=== PATIENT | male | born 1975 | race Caucasian/White ===

== ENCOUNTER 2018-12-04 20:10 | Emergency (ER) | payer OTHER ==
[2018-12-04 20:14] VITALS: BMI 30.7
[2018-12-04 20:42] LABS: BASOPHILS 0.1 % (0-2); EOSINOPHILS 3.1 % (0-7); HEMOGLOBIN 16.2 g/dL (13.5-17.5); IMMATURE GRANULOCYTES 0.1 % (0-5); LYMPHOCYTES 34.9 % (15-50); MCH 30.2 pg (26.0-34.0); MCV 83.8 fL (80.0-100.0); MEAN PLATELET VOLUME 9.7 fL (7.4-10.4); MONOCYTES 5.5 % (2-11); NEUTROPHILS 56.3 % (40-80); PLATELET COUNT 195 10x3/uL (130-400); RBC 5.37 10x6/uL (4.20-6.10); RDW 12.4 % (11.5-14.5); WBC 9.6 10x3/uL (4.8-10.8)
[2018-12-04 20:57] LABS: ALBUMIN 3.7 g/dL (3.4-5.0); ALKALINE PHOSPHATASE 71 U/L (46-116); ALT (SGPT) 29 U/L (10-68); BILIRUBIN - TOTAL 0.35 mg/dL (0.2-1.3); CALC OSMOLALITY 283 mosm/kg (275-300); CALCIUM 8.9 mg/dL (8.5-10.1); CHLORIDE - SERUM 103 mmol/L (98-107); CREATININE - SERUM 1.4 mg/dL (0.6-1.3); GLUCOSE 161 mg/dL (74-106); POTASSIUM - SERUM 3.5 mmol/L (3.5-5.1); SODIUM 140 mmol/L (136-145); UREA NITROGEN 19 mg/dL (7-18); eGFR NON AFRICAN AMERICAN 58 mL/min (90-120)
[2018-12-04 21:09] LABS: CKMB 1.3 U/L (0.0-3.6); CREATINE KINASE 131 UL (21-232); MAGNESIUM - SERUM 1.9 mg/dL (1.8-2.4)
[2018-12-04 21:19] LABS: APTT 27.4 SECONDS (22.8-39.4); INR 1.08 (0.85-1.17); PROTIME 13.5 SECONDS (11.6-15.0)
[2018-12-04 21:25] LABS: PRO BNP 8 pg/mL (0-125); TROPONIN-I < 0.017 ng/mL (0.000-0.060)
[2018-12-04] MEDS ORDERED: ATIVAN0.5 MG PO (21:37)
[2018-12-04 22:15] VITALS: BP 125/84
[2019-03-04 09:45] VITALS: BMI 30.6
== END 2018-12-04 22:15 | disposition home or self-care (01) ==
LOC: EDBD 20:10 → D.ER 20:10
PROVIDERS: Family Medicine
DX: R05 Cough (principal); R07.9 Chest pain, unspecified

== ENCOUNTER 2019-03-03 21:13 | Inpatient (IN) | payer OTHER ==
[~2019-03-03] VITALS: Ht 180.3 cm; Wt 99.7 kg
[~2019-03-03 21:13] MED LIST: ATIVAN0.5 MG PO
--- NOTE | 2019-03-03 21:27 | NUR ---
AR TRAUMA [id number]
[2019-03-03 21:30] VITALS: BP 125/71
[2019-03-03 22:00] VITALS: BP 128/68
[2019-03-03 23:00] VITALS: BP 123/62
[2019-03-03 23:18] VITALS: BP 156/97
--- NOTE | 2019-03-03 23:49 | NUR ---
KNEE IMMOBILIZER APPLIED TO LLE. CIRCULATION INTACT TO LEFT FOOT.
[2019-03-04] VITALS (11 sets, daily range): BP systolic 96–134; BP diastolic 50–82; Ht 180.3 cm; Wt 99.7 kg
--- NOTE | 2019-03-04 00:07 | NUR ---
PT TO FLOOR WITH SIGNIFICANT OTHER AT BEDSIDE. KNEE IMMOBILIZER ON. LEFT FOREARM IV THAT IS INFUSING 125 NS ON TRANSFER. PAIN WELL CONTROLLED AT THIS TIME. EDUCATED ANIMAL CYTOLOGIST LIGHT USE AND NPO STATUS. PATIENT STATES UNDERSTANDING. CPOC.
--- NOTE | 2019-03-04 10:37 | NUR ---
NOTIFIED PANKAJ HEMPHILL APN THAT PATIENT HAS NOT URINATED ALL NIGHT. BLADDER SCAN SHOWED 843 ML. SHE WANTS A LUTZ CATH IN FOR SURGERY.
--- NOTE | 2019-03-04 10:57 | NUR ---
PLEXI PULSE ON LEFT FOOT. SCD ON RLE. LUTZ PLACED. 10 ML OF FLUID PUT IN BALLOON. 750 ML OUT. PATIENT TOLERATED WELL. NO NEEDS AT THIS TIME. CL IN REACH. WCTM
--- NOTE | 2019-03-04 13:36 | NUR ---
PLASMA BLADE SET TO 6/8 BOVIE PAD RIGHT THIGH [id number] EXP 09/10/20
[2019-03-04 17:39] LABS: BASOPHILS 0 % (0-2); EOSINOPHILS 0 % (0-7); HEMATOCRIT 36.7 % (42.0-54.0); HEMOGLOBIN 12.8 g/dL (13.5-17.5); IMMATURE GRANULOCYTES 0.5 % (0-5); LYMPHOCYTES 4.7 % (15-50); MCH 29.4 pg (26.0-34.0); MCHC 34.9 g/dL (31.0-37.0); MCV 84.4 fL (80.0-100.0); MEAN PLATELET VOLUME 9.8 fL (7.4-10.4); MONOCYTES 6.1 % (2-11); NEUTROPHILS 88.7 % (40-80); PLATELET COUNT 150 10x3/uL (130-400); RBC 4.35 10x6/uL (4.20-6.10); RDW 12.8 % (11.5-14.5); WBC 10.2 10x3/uL (4.8-10.8)
[2019-03-04 17:58] LABS: ALBUMIN 3.2 g/dL (3.4-5.0); ANION GAP 11.7 mmol/L (8-16); BILIRUBIN - TOTAL 0.56 mg/dL (0.2-1.3); CARBON DIOXIDE 27.5 mmol/L (21.0-32.0); CREATININE - SERUM 1.5 mg/dL (0.6-1.3); POTASSIUM - SERUM 4.2 mmol/L (3.5-5.1); PROTEIN - SERUM 6.6 g/dL (6.4-8.2)
--- NOTE | 2019-03-04 23:18 | NUR ---
PT RESTING IN BED. EYES CLOSED. NO SIGNS OF DISTRESS. BREATHING EVEN AND UNLABORED. IV SITE LT FA DRESSING CLEAN DRY AND INTACT. NO SIGNS OF INFECTION. LT AND RT ARM ABRASIONS REDDNESS. BOWEL SOUNDS ACTIVE. ABD ABRASIONS AND REDDNESS. LUTZ IN PLACE NO SIGNS OF INFECTION AT SITE. LT LEG CAST INTACT. WILL CONTINUE PLAN OF CARE. CALL LIGHT IN REACH. BED LOWERED AND LOCKED. BED RAILS UP X2.
[2019-03-05 01:17] VITALS: BP 124/50
--- NOTE | 2019-03-05 02:53 | NUR ---
I have reviewed this patient and I concur with the Shift Assessment completed by the Licensed Practical Nurse today this shift.
[2019-03-05 03:38] LABS: UDS - AMPHET NEGATIVE QUAL (NEGATIVE); UDS - BARB NEGATIVE QUAL (NEGATIVE); UDS - BENZO NEGATIVE QUAL (NEGATIVE); UDS - COCAINE NEGATIVE QUAL (NEGATIVE); UDS - OPIATE POSITIVE QUAL (NEGATIVE); UDS - PCP NEGATIVE QUAL (NEGATIVE); UDS - THC NEGATIVE QUAL (NEGATIVE)
[2019-03-05 03:41] LABS: APPEARANCE CLEAR (CLEAR); BILIRUBIN NEGATIVE (NEGATIVE); COLOR YELLOW (YELLOW); GLUCOSE 100 mg/dL (NEGATIVE); KETONE NEGATIVE (NEGATIVE); NITRITE NEGATIVE (NEGATIVE); PROTEIN NEGATIVE (NEGATIVE); UROBILINOGEN NORMAL (NORMAL)
[2019-03-05 03:47] LABS: BACTERIA FEW /hpf (NONE SEEN); EPITHELIAL CELLS 0-5 /hpf (0-5); WHITE CELLS - URINE 0-5 /hpf (0-5)
--- NOTE | 2019-03-05 04:30 | NUR ---
PT IV INFULTRATED. NEW IV SITED RT FA 20G. ATTEMPTS X1. PT TOLERATED WELL. RESTARTED IV FLUIDS.
[2019-03-05 04:59] VITALS: BP 124/62
--- NOTE | 2019-03-05 05:11 | NUR ---
PT ALERT AND ORIENTED.PT STATES STILL NO FEELING IN HIS LT LEG. CHECKED PULSE STONG PULSE. FOOT WARM TO TOUCH. SWELLING HAS GONE DOWN SOME. BLEEDING THROUGH DRESSING ON THE BACK SIDE SMALL AMOUNT BRIGHT RED BLOOD. CHANGED PAD UNDER LEG. WILL CONTINUE TO MONITOR.
[2019-03-05 06:34] LABS: BASOPHILS 0 % (0-2); EOSINOPHILS 0.1 % (0-7); HEMATOCRIT 32.7 % (42.0-54.0); HEMOGLOBIN 11.4 g/dL (13.5-17.5); IMMATURE GRANULOCYTES 0.3 % (0-5); LYMPHOCYTES 16.5 % (15-50); MCH 29.5 pg (26.0-34.0); MCHC 34.9 g/dL (31.0-37.0); MCV 84.5 fL (80.0-100.0); MEAN PLATELET VOLUME 9.9 fL (7.4-10.4); NEUTROPHILS 74.1 % (40-80); PLATELET COUNT 160 10x3/uL (130-400); RBC 3.87 10x6/uL (4.20-6.10); RDW 12.6 % (11.5-14.5); WBC 9.8 10x3/uL (4.8-10.8)
[2019-03-05 07:04] LABS: ALBUMIN 2.9 g/dL (3.4-5.0); ALKALINE PHOSPHATASE 58 U/L (46-116); ALT (SGPT) 21 U/L (10-68); BILIRUBIN - TOTAL 0.44 mg/dL (0.2-1.3); CALC OSMOLALITY 273 mosm/kg (275-300); CALCIUM 7.8 mg/dL (8.5-10.1); CARBON DIOXIDE 28.1 mmol/L (21.0-32.0); CHLORIDE - SERUM 103 mmol/L (98-107); CREATINE KINASE 560 UL (21-232); CREATININE - SERUM 1.3 mg/dL (0.6-1.3); GLUCOSE 125 mg/dL (74-106); POTASSIUM - SERUM 3.8 mmol/L (3.5-5.1); PROTEIN - SERUM 6.4 g/dL (6.4-8.2); SODIUM 136 mmol/L (136-145); UREA NITROGEN 15 mg/dL (7-18); eGFR NON AFRICAN AMERICAN 64 mL/min (90-120)
[2019-03-05 07:06] LABS: CKMB 1.5 U/L (0.0-3.6)
--- NOTE | 2019-03-05 07:33 | NUR ---
PT IS RESTING IN BED WITH EYES CLOSED. RESPIRATIONS ARE EVEN AND UNLABORED. PT IS EASILY AROUSED WITH VERBAL STIMULATION. PT IS AAO X 4 UPON AROUSAL. DRESSING TO LLE NOTED WITH MODERATE AMOUNT OF RED DRAINAGE NOTED TO UNDERSIDE. PT REPORTS "A LITTLE" FEELING TO LEFT TOES BUT IS UNABLE TO WIGGLE LEFT TOES AT THIS TIME. PT DENIES PRESENCE OF PAIN. MULTIPLE AREAS OF ROAD RASH NOTED TO PT BILATERAL UPPER EXTREMITIES AND ABDOMEN. PT DENIES PRESENCE OF N/V. BED IS IN THE LOWEST POSITION. CALL LIGHT AND BEDSIDE TABLE ARE WITHIN REACH. SIDE RAILS X 2. PT DENIES FURTHER NEEDS AT THIS TIME. WILL CONT TO MONITOR.
[2019-03-05 08:07] VITALS: BP 107/55
--- NOTE | 2019-03-05 10:07 | NUR ---
DRESSING TO LLE CHANGED PER VERBAL DIRECTION/ORDER FROM PANKAJ BURCH. POLLO WRAPS REMOVED, ABD PADS PLACED, NEW POLLO WRAPS APPLIED TO LLE. PT DENIES PRESENCE OF PAIN. PT REPORTS MINIMAL FEELING TO LLE. PT DENIES FURTHER NEEDS. BED IS IN THE LOWEST POSITION. CALL LIGHT AND BEDSIDE TABLE ARE WITHIN REACH. SIDE RAILS X 2. WILL CONT TO MONITOR.
[2019-03-05 13:27] VITALS: BP 128/57
--- NOTE | 2019-03-05 13:32 | NUR ---
PHARMACY NOTIFIED OF NEED FOR FLUIDS. SEE EMAR.
[2019-03-05 16:10] VITALS: BP 135/62
--- NOTE | 2019-03-05 17:10 | NUR ---
PT WITH EDEMA AND BLUE DISCOLORATION TO LEFT KNEE. /PANKAJ BURCH PAGED BY HEAVY DUTY TRUCK MECHANIC TO NOTIFY.
--- NOTE | 2019-03-05 17:12 | NUR ---
PANKAJ BURCH RETURNS PAGE. ORDERS RECD ARE TO OBTAIN NEW XRAY OF LEFT KNEE AND PLACE ICE TO AFFECTED AREA. WILL PLACE ORDERS.
--- NOTE | 2019-03-05 17:28 | NUR ---
XRAY TO LEFT KNEE COMPLETE. ICE APPLIED TO LEFT KNEE. WILL NOTIFY PANKAJ HEMPHILL APN WITH REPORT WHEN READY.
--- NOTE | 2019-03-05 19:02 | NUR ---
PANKAJ BURCH NOTIFIED OF KNEE EXRAY RESULTS. NO NEW ORDERS RECD.
[2019-03-05 21:44] VITALS: BP 114/58
--- NOTE | 2019-03-06 01:06 | NUR ---
PT RESTING IN BED. EYES CLOSED. NO SIGNS OF DISTRESS. BREATHING EVEN AND UNLABORED. IV SITE RT FA DRESSING CLEAN DRY AND INTACT. NO SIGNS OF INFECTION. BOWEL SOUNDS ACTIVE. LT AND ER ARMS SKIN TEARS AND REDDNESS. LUNG SOUNDS CLEAR. LT LOWER AND SKIN TEARS. LUTZ IN PLACE. CLEAN DRY AND INTACT AT SITE. LT LOWER LEG PINS AND DRESSING INTACT. WILL CONTINUE PLAN OF CARE. CALL LIGHT IN REACH. BED LOWERED AND LOCKED. BED RAILS UPX2.
[2019-03-06 01:11] VITALS: BP 124/60
--- NOTE | 2019-03-06 04:23 | NUR ---
I have reviewed this patient and I concur with the Shift Assessment completed by the Licensed Practical Nurse today this shift.
[2019-03-06 05:18] VITALS: BP 117/60
[2019-03-06 07:10] LABS: BASOPHILS 0.1 % (0-2); HEMATOCRIT 31.6 % (42.0-54.0); HEMOGLOBIN 10.9 g/dL (13.5-17.5); IMMATURE GRANULOCYTES 0.5 % (0-5); LYMPHOCYTES 29.2 % (15-50); MCH 29.2 pg (26.0-34.0); MCHC 34.5 g/dL (31.0-37.0); MCV 84.7 fL (80.0-100.0); MEAN PLATELET VOLUME 9.8 fL (7.4-10.4); MONOCYTES 9.4 % (2-11); NEUTROPHILS 59.8 % (40-80); PLATELET COUNT 145 10x3/uL (130-400); RBC 3.73 10x6/uL (4.20-6.10); RDW 12.4 % (11.5-14.5); WBC 8.2 10x3/uL (4.8-10.8)
--- NOTE | 2019-03-06 07:18 | NUR ---
PT IS RESTING IN BED WITH EYES CLOSED. RESPIRATIONS ARE EVEN AND UNLABORED. PT IS EASILY ARUSED WITH VERBAL STIMULATION. PT REPORTS PAIN 5/10. HOTEL MAINTENANCE WORKER DILAUDID IS AVAILABLE. LLE WITH DRESSING IN PLACE. MODERATE AMOUNT OF BLOOD NOTED TO DRESSING. PT REPORTS FEELING TO LLE. PT IS ABLE TO MOVE LLE. LUTZ CATHETER IN PLACE AND DRAINING WITHOUT DIFFICULTY. CLEAR YELLOW URINE NOTED TO COLLECTION BAG. PT DENIES PRESENCE OF N/V. BED IS IN THE LOWEST POSITION. CALL LIGHT AND BEDSIDE TABLE ARE WITHIN REACH. SIDE RAILS X 2. PT DENIES FURTHER NEEDS. WILL CONT TO MONITOR.
[2019-03-06 07:22] LABS: ANION GAP 8.5 mmol/L (8-16); CALCIUM 7.9 mg/dL (8.5-10.1); CARBON DIOXIDE 30.9 mmol/L (21.0-32.0); CREATININE - SERUM 1.2 mg/dL (0.6-1.3); POTASSIUM - SERUM 3.4 mmol/L (3.5-5.1)
[2019-03-06 09:03] VITALS: BP 130/73
--- NOTE | 2019-03-06 11:15 | NUR ---
DRESSING CHANGED TO LLE PER ORDER. PT TOLERATED WELL. LLE IS ELEVATED AT THIS TIME. CARBIDE POWDER PROCESSOR DILAUDID AVAILABLE FOR PAIN CONTROL. PT DENIES PRESENCE OG N/V. BED IS IN THE LOWEST POSITION. CALL LIGHT AND BEDSIDE TABLE ARE WITHIN REACH. SIDE RAILS X 2. WILL CONT TO MONITOR.
[2019-03-06 13:48] VITALS: BP 120/78
--- NOTE | 2019-03-06 14:49 | MORECARE ---
CASE MANAGEMENT DISCHARGE SUMMARY PATIENT: COLLEEN HAN UNIT: [id number] ADM DATE: 03/04/19 AGE: 43 : 73 SEX: M ROOM/BED: D.2212 AUTHOR: MARILEEDOC PHYSICIAN: REFERRING PHYSICIAN: YOVANI WILSON MD DATE OF SERVICE: 03/06/19 Discharge Plan Patient Name: COLLEEN HAN Facility: [facility]:[place] : 1975 Planned Disposition: Home or Self Care Anticipated Discharge Date: Discharge Date: Expected LOS: Initial Reviewer: [email or web address] Initial Review Date: 03/03/2019 Generated: 03/06/19 3:48 pm Comments DCP- Discharge Planning Updated by [email or web address]: Beverly Hui on 03/06/19 1:[address] Patient Name: COLLEEN HAN Admission Status: ER Accout number: [id number] Admission Date: 03-04-2019 : 1975 Admission Diagnosis:UNSP FRACTURE OF SHAFT OF LEFT TIBIA, INIT FOR CLOS FX Attending: YOVANI WILSON Current LOS: 2 Anticipated DC Date: Planned Disposition: Home or Self Care Primary Insurance: [employer] POS Discharge Planning Comments: CM met with patient to complete initial dc planning assessment. CM educated patient on the CM role and verbal consent given by patient to complete assessment. Patient lives at home with his adult children where he was independent with his care. At discharge patient plans to return home and feels this is a safe discharge. CM discussed availability of home health, rehab services, and medical equipment. At this point he stated that he will need crutches when discharged. Patient denied known discharge needs at this time. One of his daughters will be his cart driver home. CM will continue to follow and will assist as needed with dc plans/needs. Bell Person: Beverly Hui DCPIA - Discharge Planning Initial Assessment Updated by [email or web address]: Beverly Hui on 03/06/19 2:46 pm * Is the patient Alert and Oriented? Yes * How many steps to enter\exit or inside your home? * PCP HOLLINS * Pharmacy [facility] * Preadmission Environment Home with Family * ADLs Independent * Equipment None * List name and contact numbers for known caregivers / representatives who currently or will assist patient after discharge: COLLEEN HAN [phone] * Verbal permission to speak to the caregivers and representatives has been obtained from the patient. N/A * Community resources currently utilized None * Additional services required to return to the preadmission environment? Yes * Can the patient safely return to the preadmission environment? Yes * Has this patient been hospitalized within the prior 30 days at any hospital? No Patient Name: COLLEEN HAN Page [phone] at 1449 All edits/amendments must be made on the electronic document DICTATION DATE: 03/06/191447 MOLD DESIGNER: NOELLE 03/06/191447 RPT#: [id number] [place] DATE: STATUS: ADM IN [facility] [address] [place] [address] END OF REPORT
[2019-03-06 17:10] VITALS: BP 124/75
[2019-03-06 21:53] VITALS: BP 133/71
[2019-03-07 00:25] VITALS: BP 116/70
--- NOTE | 2019-03-07 03:00 | NUR ---
PT IV INFULTRATED. NEW IV SITED RT FA. ATTEMPTS X1. PT TOLERATED WELL. 20G. WILL CONTINUE FLUIDS.
--- NOTE | 2019-03-07 04:24 | NUR ---
PT RESTING IN BED. ALERT AND ORIENTED. NO SINGS OF DISTRESS. BREATHING EVEN AND UNLABORED. IV SITE RT FA DRESSING CLEAN DRY AND INTACT. NO SIGNS OF INFECTION. BOWEL SOUNDS ACTIVE. ROAD RASH LT AND RT ARM AND ABD. LUTZ IN PLACE CLEAN DRY AND INTACT. LT LEG DRESSING CLEAN DRY AND INTACT. LEG ELAVATED. WILL CONTINUE PLAN OF CARE. CALL LIGHT IN REACH. BED LOWERED AND LOCKED. BED RAILS UPX2.
[2019-03-07 05:16] VITALS: BP 110/65
[2019-03-07 06:05] LABS: BASOPHILS 0.2 % (0-2); HEMATOCRIT 33.3 % (42.0-54.0); HEMOGLOBIN 11.5 g/dL (13.5-17.5); IMMATURE GRANULOCYTES 0.7 % (0-5); LYMPHOCYTES 28.9 % (15-50); MCHC 34.5 g/dL (31.0-37.0); MCV 83.9 fL (80.0-100.0); MEAN PLATELET VOLUME 9.9 fL (7.4-10.4); MONOCYTES 9.8 % (2-11); NEUTROPHILS 58.4 % (40-80); PLATELET COUNT 157 10x3/uL (130-400); RBC 3.97 10x6/uL (4.20-6.10); RDW 12.4 % (11.5-14.5); WBC 8.4 10x3/uL (4.8-10.8)
[2019-03-07 06:29] LABS: ANION GAP 9.2 mmol/L (8-16); CALCIUM 8.1 mg/dL (8.5-10.1); CARBON DIOXIDE 29.6 mmol/L (21.0-32.0); CREATININE - SERUM 1.2 mg/dL (0.6-1.3); POTASSIUM - SERUM 3.8 mmol/L (3.5-5.1)
--- NOTE | 2019-03-07 07:00 | NUR ---
PT IS RESTING IN BED WITH EYES OPEN. RESPIRATIONS ARE EVEN AND UNLABORED. DRESSING TO LLE IS WITH MODERATE DRAINAGE NOTED TO THE UNDERSIDE. LLE IS ELEVATED. LUTZ CATHETER IS DRAINING WITHOUT DIFFICULTY. CLEAR YELLOW URINE NOTED TO COLLECTION BAG. PT IS AAO X 4. PT REPORTS PAIN 3/10. CUSTOMS INVESTIGATOR DILAUDID IS AVAILABLE. PT DENIES PRESENCE OF N/V. PT DENIES FURTHER NEEDS. BED IS IN THE LOWEST POSITION. CALL LIGHT AND BEDSIDE TABLE ARE WITHIN REACH. SIDE RAILS X 2. WILL CONT TO MONITOR.
--- NOTE | 2019-03-07 07:06 | NUR ---
PT TRANSPORTED FROM ROOM VIA BED BY HOSPITAL STAFF FOR PROCEDURE. PT DENIES FURTHER NEEDS. FAMILY IS IN ROOM.
--- NOTE | 2019-03-07 08:29 | NUR ---
PREPPED FROM UPPER THIGH TO TOES CIRCUMFERENTIALLY. EX FIX IN PLACE. PREPPED ALL HARDWARE ON EX FIX.
--- NOTE | 2019-03-07 10:00 | NUR ---
PT RETURNS TO ROOM VIA BED AND IS AAO X 4. FAMILY IS AT BEDSIDE. PT REPORTS FEELING TO LLE. DRESSING TO LLE IS CDI. PT REPORTS SLIGHT PAIN. DRAINAGE ENGINEER DILAUDID IS AVAILABLE. PT EDUCATED ON ALL TYPES OF ANALGESIA. LUTZ CATHETER IN PLACE AND DRAINING WITHOUT DIFFICULTY. PT DENIES PRESENCE OF N/V AT THIS TIME. BED IS IN THE LOWEST POSITION. CALL LIGHT AND BEDSIDE TABLE ARE WITHIN REACH. SIDE RAILS X 2. WILL CONT TO MONITOR.
[2019-03-07 10:03] VITALS: BP 135/79
--- NOTE | 2019-03-07 13:31 | NUR ---
Nutrition follow-up: Pt NPO for procedure today PO intake has been ~60% of meals Labs reviewed Wt: 219# RDN following.
[2019-03-07 17:49] VITALS: BP 122/51
--- NOTE | 2019-03-07 19:48 | NUR ---
22G PIV TO RIGHT FOREARM INSERTED FOR VOLUNTEER SERVICES MANAGER ADMINISTRATION. PT TOLERATED WELL.
[2019-03-07 21:26] VITALS: BP 116/62
[2019-03-08] VITALS (7 sets, daily range): BP systolic 113–137; BP diastolic 61–80
[2019-03-08 06:10] LABS: BASOPHILS 0.1 % (0-2); EOSINOPHILS 0.8 % (0-7); HEMATOCRIT 31.1 % (42.0-54.0); IMMATURE GRANULOCYTES 0.9 % (0-5); LYMPHOCYTES 26.7 % (15-50); MCH 29.3 pg (26.0-34.0); MCHC 35.4 g/dL (31.0-37.0); MCV 82.7 fL (80.0-100.0); MEAN PLATELET VOLUME 9.6 fL (7.4-10.4); MONOCYTES 8.1 % (2-11); NEUTROPHILS 63.4 % (40-80); RBC 3.76 10x6/uL (4.20-6.10); RDW 12.5 % (11.5-14.5)
[2019-03-08 06:31] LABS: CALC OSMOLALITY 276 mosm/kg (275-300); CALCIUM 8.3 mg/dL (8.5-10.1); CARBON DIOXIDE 28.2 mmol/L (21.0-32.0); CHLORIDE - SERUM 105 mmol/L (98-107); CREATININE - SERUM 1.1 mg/dL (0.6-1.3); GLUCOSE 106 mg/dL (74-106); POTASSIUM - SERUM 3.8 mmol/L (3.5-5.1); SODIUM 138 mmol/L (136-145); UREA NITROGEN 15 mg/dL (7-18); eGFR NON AFRICAN AMERICAN 77 mL/min (90-120)
[2019-03-08 06:32] LABS: PLATELET COUNT 191 10x3/uL (130-400); WBC 10.6 10x3/uL (4.8-10.8)
--- NOTE | 2019-03-08 08:45 | NUR ---
PATIENT IN BED WITH IV INTACT. NO COMPLAINTS OR SIGNS OF DISTRESS. FAMILY AT BEDSIDE. CALL LIGHT WITHIN REACH. DRESSING TO LLE CDI. FAMILY AT BEDSIDE.
[2019-03-08] MEDS ORDERED: HYDROCODON-ACE1 EA10 PO (08:54)
[2019-03-08] MEDS ORDERED: ELIQUIS2.5 MG PO (08:54)
--- NOTE | 2019-03-08 11:30 | NUR ---
LUTZ REMOVED PER ORDERS.
--- NOTE | 2019-03-08 12:47 | MORECARE ---
CASE MANAGEMENT DISCHARGE SUMMARY PATIENT: COLLEEN HAN UNIT: [id number] ADM DATE: 03/04/19 AGE: 43 : 73 SEX: M ROOM/BED: D.2212 AUTHOR: MARILEEDOC PHYSICIAN: REFERRING PHYSICIAN: YOVANI WILSON MD DATE OF SERVICE: 03/08/19 Discharge Plan Patient Name: COLLEEN HAN Facility: [facility]:[place] : 1975 Planned Disposition: Home or Self Care Anticipated Discharge Date: Discharge Date: Expected LOS: Initial Reviewer: [email or web address] Initial Review Date: 03/03/2019 Generated: 03/08/19 1:47 pm DCP- Discharge Planning Updated by [email or web address]: Beverly Hui on 03/06/19 1:[address] Patient Name: COLLEEN HAN Admission Status: ER Accout number: [id number] Admission Date: 03-04-2019 : 1975 Admission Diagnosis:UNSP FRACTURE OF SHAFT OF LEFT TIBIA, INIT FOR CLOS FX Attending: YOVANI WILSON Current LOS: 2 Anticipated DC Date: Planned Disposition: Home or Self Care Primary Insurance: [email or web address] POS Discharge Planning Comments: CM met with patient to complete initial dc planning assessment. CM educated patient on the CM role and verbal consent given by patient to complete assessment. Patient lives at home with his adult children where he was independent with his care. At discharge patient plans to return home and feels this is a safe discharge. CM discussed availability of home health, rehab services, and medical equipment. At this point he stated that he will need crutches when discharged. Patient denied known discharge needs at this time. One of his daughters will be his newspaper delivery driver home. CM will continue to follow and will assist as needed with dc plans/needs. Mixing Place Supervisor: Beverly Hui DCPIA - Discharge Planning Initial Assessment Updated by [email or web address]: Beverly Hui on 03/06/19 2:46 pm * Is the patient Alert and Oriented? Yes * How many steps to enter\exit or inside your home? * PCP HOLLINS * Pharmacy [facility] * Preadmission Environment Home with Family * ADLs Independent * Equipment None * List name and contact numbers for known caregivers / representatives who currently or will assist patient after discharge: COLLEEN HAN [phone] * Verbal permission to speak to the caregivers and representatives has been obtained from the patient. N/A * Community resources currently utilized None * Additional services required to return to the preadmission environment? Yes * Can the patient safely return to the preadmission environment? Yes * Has this patient been hospitalized within the prior 30 days at any hospital? No Last DP export: 03/06/19 1:49 p Patient Name: COLLENE HAN Page [phone] at 1247 All edits/amendments must be made on the electronic document DICTATION DATE: 03/08/19 1247 OPERATIONS WELDER: NOELLE 03/08/19 1247 RPT#: [id number] DC DATE: STATUS: ADM IN [facility] [address] [place] [address] END OF REPORT
--- NOTE | 2019-03-08 13:00 | MORECARE ---
CASE MANAGEMENT DISCHARGE SUMMARY PATIENT: COLLEEN HAN UNIT: [id number] ADM DATE: 03/04/19 AGE: 43 : 73 SEX: M ROOM/BED: D.2212 AUTHOR: MARILEEDOC PHYSICIAN: REFERRING PHYSICIAN: YOVANI WILSON MD DATE OF SERVICE: 03/08/19 Discharge Plan Patient Name: COLLEEN HAN Facility: [facility]:[place] : 1975 Planned Disposition: Home or Self Care Anticipated Discharge Date: Discharge Date: Expected LOS: Initial Reviewer: [email or web address] Initial Review Date: 03/03/2019 Generated: 03/08/19 2:00 pm DCP- Discharge Planning Updated by [email or web address]: Beverly Hui on 03/06/19 1:[address] Patient Name: COLLEEN HAN Admission Status: ER Accout number: [id number] Admission Date: 03-04-2019 : 1975 Admission Diagnosis:UNSP FRACTURE OF SHAFT OF LEFT TIBIA, INIT FOR CLOS FX Attending: YOVANI WILSON Current LOS: 2 Anticipated DC Date: Planned Disposition: Home or Self Care Primary Insurance: [employer] POS Discharge Planning Comments: CM met with patient to complete initial dc planning assessment. CM educated patient on the CM role and verbal consent given by patient to complete assessment. Patient lives at home with his adult children where he was independent with his care. At discharge patient plans to return home and feels this is a safe discharge. CM discussed availability of home health, rehab services, and medical equipment. At this point he stated that he will need crutches when discharged. Patient denied known discharge needs at this time. One of his daughters will be his power screwdriver operator home. CM will continue to follow and will assist as needed with dc plans/needs. Media Services Specialist: Beverly Hui DCPIA - Discharge Planning Initial Assessment Updated by [email or web address]: Beverly Hui on 03/06/19 2:46 pm * Is the patient Alert and Oriented? Yes * How many steps to enter\exit or inside your home? * PCP HOLLINS * Pharmacy [facility] * Preadmission Environment Home with Family * ADLs Independent * Equipment None * List name and contact numbers for known caregivers / representatives who currently or will assist patient after discharge: COLLEEN HAN [phone] * Verbal permission to speak to the caregivers and representatives has been obtained from the patient. N/A * Community resources currently utilized None * Additional services required to return to the preadmission environment? Yes * Can the patient safely return to the preadmission environment? Yes * Has this patient been hospitalized within the prior 30 days at any hospital? No External Providers External Provider: [facility] Next Contact Date: Service Request Date: Service Type: Resolution: Reviewer: Comments: External Provider: [facility] Next Contact Date: Service Request Date: Service Type: Resolution: Reviewer: Comments: Last DP export: 03/08/19 11:47 a Patient Name: COLLEEN HAN Page [phone] at 1300 All edits/amendments must be made on the electronic document DICTATION DATE: 03/08/19 1300 HOSPITAL CHIEF EXECUTIVE OFFICER: NOELLE 03/08/19 1300 RPT#: [id number] DC DATE: STATUS: ADM IN [facility] [address] [place] [address] END OF REPORT
--- NOTE | 2019-03-08 13:10 | MORECARE ---
CASE MANAGEMENT DISCHARGE SUMMARY PATIENT: COLLEEN HAN UNIT: [id number] ADM DATE: 03/04/19 AGE: 43 : 73 SEX: M ROOM/BED: D.2212 AUTHOR: STEPHEN HUNT PHYSICIAN: REFERRING PHYSICIAN: YOVANI WILSON MD DATE OF SERVICE: 03/08/19 Discharge Plan Patient Name: COLLEEN HAN Facility: [facility]:[place] : 1975 Planned Disposition: Home or Self Care Anticipated Discharge Date: Discharge Date: Expected LOS: Initial Reviewer: [email or web address] Initial Review Date: 03/03/2019 Generated: 03/08/19 2:10 pm Comments DCP- Discharge Planning Updated by [email or web address]: Beverly Hui on 03/08/19 12:[address] PATIENT WILL NEED HOME HEALTH AT [place], [facility] WITH [facility], THEY WILL ACCEPT PATIENT WHEN DISCHARGED. I HAVE SENT CLINICALS TO [facility] AND SPOKEN WITH LACEY. HE HAS FAMILY THAT CAN BE TAUGHT WOUND CARE, PATIENT DOES HAVE A 20% COPAY WITH HOME HEALTH ([facility] IS IN NETWORK ) HE WILL NEED A WALKER AT DISCHARGE I HAVE ORDERED THAT WITH [facility], I SPOKE WITH YASMINE AND THEY WILL DELIVER THE WALKER TO THE HOSPITAL TODAY. CM TO CONTINUE TO FOLLOW AND ASSIST WITH DC PLANNING NEEDED DCP- Discharge Planning Updated by [email or web address]: Beverly Hui on 03/06/19 1:[address] Patient Name: COLLEEN HAN Admission Status: ER Accout number: [id number] Admission Date: 03-04-2019 : 1975 Admission Diagnosis:UNSP FRACTURE OF SHAFT OF LEFT TIBIA, INIT FOR CLOS FX Attending: YOVANI WILSON Current LOS: 2 Anticipated DC Date: Planned Disposition: Home or Self Care Primary [facility] Discharge Planning Comments: CM met with patient to complete initial dc planning assessment. CM educated patient on the CM role and verbal consent given by patient to complete assessment. Patient lives at home with his adult children where he was independent with his care. At discharge patient plans to return home and feels this is a safe discharge. CM discussed availability of home health, rehab services, and medical equipment. At this point he stated that he will need crutches when discharged. Patient denied known discharge needs at this time. One of his daughters will be his utility worker driver home. CM will continue to follow and will assist as needed with dc plans/needs. Tumbler Machine Operator: Beverly Hui DCPIA - Discharge Planning Initial Assessment Updated by [email or web address]: Beverly Hui on 03/06/19 2:46 pm * Is the patient Alert and Oriented? Yes * How many steps to enter\exit or inside your home? * PCP HOLLINS * Pharmacy [facility] * Preadmission Environment Home with Family * ADLs Independent * Equipment None * List name and contact numbers for known caregivers / representatives who currently or will assist patient after discharge: COLLEEN HAN [phone] * Verbal permission to speak to the caregivers and representatives has been obtained from the patient. N/A * Community resources currently utilized None * Additional services required to return to the preadmission environment? Yes * Can the patient safely return to the preadmission environment? Yes * Has this patient been hospitalized within the prior 30 days at any hospital? No Coverage Notice Reviewer: [id number] - Beverly Hui Notice Issued Date-Time: 03/08/2019 8:30 Notice Type: Patient Choice Letter Notice Delivered To: Patient Relationship to Patient: [employer] Jointer Name: Delivery Method: HAND - Hand Delivered Elaine Days: Prior Verbal Notification: Recipient Understood Notice: Yes Recipient Signature: Yes Med Rec Note Co-signed by Attending: Coverage Notice Comment: [facility] Last DP export: 03/08/19 12:00 p Patient Name: COLLEEN HAN Page [phone] at 1310 All edits/amendments must be made on the electronic document DICTATION DATE: 03/08/19 1310 PAPER STRIPPER: NOELLE 03/08/19 1310 RPT#: [id number] DC DATE: STATUS: ADM IN [facility] [address] [place] [address] END OF REPORT
--- NOTE | 2019-03-08 19:15 | NUR ---
PT ALERT AND ORIENTED WITH SON IN ROOM. RATES PAIN 2 OUT OF 10 AT THIS TIME. AM NURSE COMING IN TO COMPLETE DRESSING CHANGE. CURRENTLY LLE HAS EXTERNAL FIXATION AND POLLO WRAP. DRAINAGE NOTED ON THE BOTTOM OF THE DRESSING. HAS RIGHT FOREARM IV X 2. BOTH CURRENTLY SALINE LOCKED. PATIENT HAS SCD TO THE RIGHT LOWER EXTREMETY. VERBALIZES UNDERSTANDING TO USE URINAL WHEN IN NEED OF BATHROOM DUTIES. PATIENT ALSO VERBALIZES NOT TO GET OUT OF BED WITH OUT ASSISTANCE. HAS CALL LIGHT IN REACH. DENIES FURTHER ISSUES AT THIS TIME. CPOC.
--- NOTE | 2019-03-08 20:04 | NUR ---
PATIENT IV INTACT. NO COMPLAINTS OR SIGNS OF DISTRESS. SALINE LOCKED. VOIDED 650 AFTER LUTZ REMOVED WITH NO PROBLEMS. DRESSING INTACT. CALL LIGHT WITHIN REACH.
--- NOTE | 2019-03-08 20:40 | NUR ---
PATIENT DRESSING TO LLE CHANGED. PIN SITES CLEANED WITH PEROXIDE AND WRAPPED WITH NEW XEROFORM. MID INCISION XEROFORM CHANGED, DID NOT TOUCH LATERAL INCISION. GAUZED AND ABD PADS PLACED OVER INCISION SITES AND WRAPPED WITH KERLIX PER ORDER. PATIENT TOLERATED WITH SMALL AMOUNT OF PAIN. CALL LIGHT WITHIN REACH. FAMILY AT BEDSIDE.
--- NOTE | 2019-03-08 20:50 | NUR ---
ADMINISTERED HYDROCODONE PRN FOR PAIN PER REQUEST. DENIES FURTHER NEEDS AT THIS TIME. CPOC.
[2019-03-09] VITALS: BP 132/69
--- NOTE | 2019-03-09 00:05 | NUR ---
PATIENT STATES HE HAS A HEADACHE AND REQUESTS TYLENOL. ADMINSTERED. PT TOLERATED WELL. CPOC.
[2019-03-09 04:00] VITALS: BP 113/74
[2019-03-09 05:19] LABS: BASOPHILS 0.4 % (0-2); EOSINOPHILS 3.4 % (0-7); HEMOGLOBIN 12.2 g/dL (13.5-17.5); IMMATURE GRANULOCYTES 1.4 % (0-5); LYMPHOCYTES 33.6 % (15-50); MCH 29.4 pg (26.0-34.0); MCHC 34.9 g/dL (31.0-37.0); MCV 84.3 fL (80.0-100.0); MEAN PLATELET VOLUME 9.4 fL (7.4-10.4); MONOCYTES 7.7 % (2-11); NEUTROPHILS 53.5 % (40-80); RBC 4.15 10x6/uL (4.20-6.10); RDW 12.7 % (11.5-14.5); WBC 10.4 10x3/uL (4.8-10.8)
[2019-03-09 05:25] LABS: CALC OSMOLALITY 276 mosm/kg (275-300); CALCIUM 8.7 mg/dL (8.5-10.1); CARBON DIOXIDE 27.2 mmol/L (21.0-32.0); CHLORIDE - SERUM 104 mmol/L (98-107); CREATININE - SERUM 1.1 mg/dL (0.6-1.3); GLUCOSE 103 mg/dL (74-106); PLATELET COUNT 239 10x3/uL (130-400); SODIUM 138 mmol/L (136-145); UREA NITROGEN 16 mg/dL (7-18); eGFR NON AFRICAN AMERICAN 77 mL/min (90-120)
--- NOTE | 2019-03-09 07:57 | NUR ---
AWAKE AND ALERT. ORIENTED X3. NO C/O AT THIS TIME. LUNGS ARE CLEAR BILATERALLY, NO COUGH NOTED. SKIN IS INTACT WITHOUT REDNESS EXCEPT ROAD RASH TO LEFT FOREARM AND INCISIONS TO LEFT LEG, WHICH HAS A DRY INTACT DRESSING IN PLACE AND EXTERNAL FIXATOR WELL. NEURO CHECKS WNL. DENIES NEEDS. SL TO RIGHT FOREARM/AC AREA PATENT WTIHOUT REDNESS AT INSERTION SITE.
[2019-03-09 08:47] VITALS: BP 122/78
--- NOTE | 2019-03-09 09:23 | MORECARE ---
CASE MANAGEMENT DISCHARGE SUMMARY PATIENT: COLLEEN HAN UNIT: [id number] ADM DATE: 03/04/19 AGE: 43 : 73 SEX: M ROOM/BED: D.2212 AUTHOR: MARILEE,DOC PHYSICIAN: REFERRING PHYSICIAN: YOVANI WILSON MD DATE OF SERVICE: 03/09/19 Discharge Plan Patient Name: COLLEEN HAN Facility: [facility]:[place] : 1975 Planned Disposition: Home or Self Care Anticipated Discharge Date: Discharge Date: Expected LOS: Initial Reviewer: [email or web address] Initial Review Date: 03/03/2019 Generated: 03/09/19 10:23 am Comments DCP- Discharge Planning Updated by [email or web address]: Genny Faulkner on 03/09/19 8:[address] DC PLAN: PATIENT DISCHARGING HOME TODAY WITH [facility]. CM met with patient who has dc order. Patient reports his walker has been delivered to his room and one of his kids will drive him home today. CM contacted [facility], spoke to [place] to inform of dc. He will let the induction machine operator nurse know. CM will fax dc orders/instructions to [facility] upon completion. Patient denied further discharge needs at this time. CM left contact number with patient to call if further needs arise prior to dc. Genny Faulkner RN, [facility] DCP- Discharge Planning Updated by [email or web address]: Beverly Hui on 03/08/19 12:[address] PATIENT WILL NEED HOME HEALTH AT [place], [place] WITH [facility], THEY WILL ACCEPT PATIENT WHEN DISCHARGED. I HAVE SENT CLINICALS TO [facility] AND SPOKEN WITH LACEY. HE HAS FAMILY THAT CAN BE TAUGHT WOUND CARE, PATIENT DOES HAVE A 20% COPAY WITH HOME HEALTH ([facility] IS IN NETWORK ) HE WILL NEED A WALKER AT DISCHARGE I HAVE ORDERED THAT WITH [facility], I SPOKE WITH YASMINE AND THEY WILL DELIVER THE WALKER TO THE HOSPITAL TODAY. CM TO CONTINUE TO FOLLOW AND ASSIST WITH DC PLANNING NEEDED DCP- Discharge Planning Updated by [email or web address]: Beverly Hui on 03/06/19 1:[address] Patient Name: COLLEEN HAN Admission Status: ER Accout number: [id number] Admission Date: 03-04-2019 : 1975 Admission Diagnosis:UNSP FRACTURE OF SHAFT OF LEFT TIBIA, INIT FOR CLOS FX Attending: YOVANI WILSON Current LOS: 2 Anticipated DC Date: Planned Disposition: Home or Self Care Primary Insurance: [employer] Discharge Planning Comments: CM met with patient to complete initial dc planning assessment. CM educated patient on the CM role and verbal consent given by patient to complete assessment. Patient lives at home with his adult children where he was independent with his care. At discharge patient plans to return home and feels this is a safe discharge. CM discussed availability of home health, rehab services, and medical equipment. At this point he stated that he will need crutches when discharged. Patient denied known discharge needs at this time. 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 CM will continue to follow and will assist as needed with dc plans/needs. Spiritual Advisor: Beverly Hui DCPIA - Discharge Planning Initial Assessment Updated by [email or web address]: Beverly Hui on 03/06/19 2:46 pm * Is the patient Alert and Oriented? Yes * How many steps to enter\exit or inside your home? * PCP [facility] * Pharmacy [facility] * Preadmission Environment Home with Family * ADLs Independent * Equipment None * List name and contact numbers for known caregivers / representatives who currently or will assist patient after discharge: COLLEEN HAN [phone] * Verbal permission to speak to the caregivers and representatives has been obtained from the patient. N/A * Community resources currently utilized None * Additional services required to return to the preadmission environment? Yes * Can the patient safely return to the preadmission environment? Yes * Has this patient been hospitalized within the prior 30 days at any hospital? No Coverage Notice Reviewer: [id number] - Beverly Hui Notice Issued Date-Time: 03/08/2019 8:30 Notice Type: Patient Choice Letter Notice Delivered To: Patient Relationship to Patient: Pipe Testing Technician Name: Delivery Method: HAND - Hand Delivered Elaine Days: Prior Verbal Notification: Recipient Understood Notice: Yes Recipient Signature: Yes Med Rec Note Co-signed by Attending: Coverage Notice Comment: [facility] Last DP export: 03/08/19 12:10 p Patient Name: COLLEEN HAN Page [id number] at 0923 All edits/amendments must be made on the electronic document DICTATION DATE: 03/09/19922 MENDING CARRIER: NOELLE 03/09/19922 RPT#: [id number] DC DATE: STATUS: ADM IN [facility] [address] [place] [address] END OF REPORT
--- NOTE | 2019-03-09 10:30 | NUR ---
DISCHARGE ORDERS RECEIVED. REQUESTED AND GIVEN ONE HYDROCODONE PO PRIOR TO DRESSING CHANGE FOR PAIN MANAGEMENT. WILL MONITOR. DRESSING TO LEFT LOWER EXTREMETY CHANGED PER ORDERS. TOLERATED WITHOUT C/O. DISCHARGE INSTRUCTIONS GIVEN BOTH VERBALLY AND WRITTEN. ALL QUESTIONS ANSWERED. VERBALIZED UNDERSTANDING OF SAME. NEEDED PRESCRIPTIONS GIVEN TO PATIENT. SL TO RIGHT FOREARM X2 D/C WTIH CATHETER INTACT. WAITNING RIDE AT THIS TIME.
--- NOTE | 2019-03-09 11:37 | NUR ---
DISCHARGED TO HOME AMBULATORY BUT NON WEIGHT BEARING ON LEFT LEG WITH FAMILY. ALL QUESTIONS ANSWERED. ALL BELONGINGS WITH PATIENT.
--- NOTE | 2019-03-12 14:27 | MORECARE ---
CASE MANAGEMENT DISCHARGE SUMMARY PATIENT: COLLEEN HAN UNIT: [id number] ADM DATE: 03/04/19 AGE: 43 : [birth year] SEX: M ROOM/BED: D.2212 AUTHOR: STEPHEN HUNT PHYSICIAN: REFERRING PHYSICIAN: YOVANI WILSON MD DATE OF SERVICE: 03/12/19 Discharge Plan Patient Name: COLLEEN HAN Facility: [facility]:[place] : 1975 Planned Disposition: Home or Self Care Anticipated Discharge Date: Discharge Date: 03/09/2019 Expected LOS: 0 Initial Reviewer: [email or web address] Initial Review Date: 03/03/2019 Generated: 03/12/19 3:27 pm Comments DCP- Discharge Planning Updated by [email or web address]: Genny Faulkner on 03/09/19 8:[address] DC PLAN: PATIENT DISCHARGING HOME TODAY WITH [facility]. CM met with patient who has dc order. Patient reports his walker has been delivered to his room and one of his kids will drive him home today. CM contacted [facility], spoke to [place] to inform of dc. He will let the ultrasonic seaming machine operator nurse know. CM will fax dc orders/instructions to [facility] upon completion. Patient denied further discharge needs at this time. CM left contact number with patient to call if further needs arise prior to dc. Genny Faulkner RN, [facility] DCP- Discharge Planning Updated by [id number]: Beverly Hui on 03/08/19 12:[address] PATIENT WILL NEED HOME HEALTH AT [place], [facility] WITH [facility], THEY WILL ACCEPT PATIENT WHEN DISCHARGED. I HAVE SENT CLINICALS TO [facility] AND SPOKEN WITH LACEY. HE HAS FAMILY THAT CAN BE TAUGHT WOUND CARE, PATIENT DOES HAVE A 20% COPAY WITH HOME HEALTH ([facility] IS IN NETWORK ) HE WILL NEED A WALKER AT DISCHARGE I HAVE ORDERED THAT WITH [facility], I SPOKE WITH YASMINE AND THEY WILL DELIVER THE WALKER TO THE HOSPITAL TODAY. CM TO CONTINUE TO FOLLOW AND ASSIST WITH DC PLANNING NEEDED DCP- Discharge Planning Updated by [id number]: Beverly Hui on 03/06/19 1:[address] Patient Name: COLLEEN HAN Admission Status: ER Accout number: [id number] Admission Date: 03-04-2019 : 1975 Admission Diagnosis:UNSP FRACTURE OF SHAFT OF LEFT TIBIA, INIT FOR CLOS FX Attending: YOVANI WILSON Current LOS: 2 Anticipated DC Date: Planned Disposition: Home or Self Care Primary Insurance: [employer] Discharge Planning Comments: CM met with patient to complete initial dc planning assessment. CM educated patient on the CM role and verbal consent given by patient to complete assessment. Patient lives at home with his adult children where he was independent with his care. At discharge patient plans to return home and feels this is a safe discharge. CM discussed availability of home health, rehab services, and medical equipment. At this point he stated that he will need crutches when discharged. Patient denied known discharge needs at this time. 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 CM will continue to follow and will assist as needed with dc plans/needs. Saw Operator: Beverly Hui DCPIA - Discharge Planning Initial Assessment Updated by [email or web address]: Beverly Hui on 03/06/19 2:46 pm * Is the patient Alert and Oriented? Yes * How many steps to enter\exit or inside your home? * PCP [facility] * Pharmacy [facility] * Preadmission Environment Home with Family * ADLs Independent * Equipment None * List name and contact numbers for known caregivers / representatives who currently or will assist patient after discharge: COLLEEN HAN [phone] * Verbal permission to speak to the caregivers and representatives has been obtained from the patient. N/A * Community resources currently utilized None * Additional services required to return to the preadmission environment? Yes * Can the patient safely return to the preadmission environment? Yes * Has this patient been hospitalized within the prior 30 days at any hospital? No Coverage Notice Reviewer: [id number] - Bevrely Hui Notice Issued Date-Time: 03/08/2019 8:30 Notice Type: Patient Choice Letter Notice Delivered To: Patient Relationship to Patient: Benefits Representative Name: Delivery Method: HAND - Hand Delivered Elaine Days: Prior Verbal Notification: Recipient Understood Notice: Yes Recipient Signature: Yes Med Rec Note Co-signed by Attending: Coverage Notice Comment: [facility] Last DP export: 03/09/19 8:23 a Patient Name: COLLEEN HAN Page [phone] at 1427 All edits/amendments must be made on the electronic document DICTATION DATE: 03/12/191426 METAL MELTER: NOELLE 03/12/191426 RPT#: [id number] DC DATE:03/09/19 STATUS: DIS IN [facility] [address] [place] [address] END OF REPORT
--- NOTE | 2019-03-14 09:16 | OP ---
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 PROCEDURES: 1. External fixation - birail tibial plateau fracture. 2. Four compartment fasciotomy release through 2 incisions. SURGEON: Yovani Wilson MD TELEPHONE SOLICITOR: ROSA ELENA Acevedo INTRAOPERATIVE COMPLICATIONS: None. SUMMARY OF PATHOLOGIC FINDINGS: Consistent with preoperative diagnosis, the patient had a very displaced and depressed lateral portion of the tibial plateau. This was reapproximated back to an anatomical position and fixed with an ex-fix given the amount of comminution. The patient also had significant compartment syndrome for compartment fasciotomy with release was done. OPERATIVE SUMMARY IN DETAIL: After obtaining the appropriate preoperative orthopedic surgery consent as well as anesthetic consultation, evaluation and clearance, the patient was brought to the operating room and placed on operating table in supine position. After general laryngeal mask airway was administered, the patient's left lower extremity was prepped and draped in routine sterile fashion. Under fluoroscopic guidance, an apex pin of the Rodriguez II MRI compatible set was utilized to manipulate the large lateral fragment back into an anatomic position as seen on radiographs. He was then pinned bicortically and taken out the far side. A second pin was then placed underneath this for cross pin fixation of the tibial plateau. At this point, the tibial plateau was in a much more anatomic position. Ring fixator was then utilized and it was connected to a birail external fixation to 2 Schanz pins in the tibia. Please note; this was done after fasciotomies were completed. The fasciotomies were done first with 2 medial and lateral incisions. Care was taken to avoid neurovascular structures. When the fascial release was done, very pink and viable flexible muscle was found with excellent relief of pressure in all 4 compartments. Having completed this surgery as described above was done. Having completed this, irrigation was then followed by red vessel loop and rodríguez gentle reapproximation, but not closed of the two fasciotomies. Pins were all dressed with Xeroform gauze. Sterile dressings were applied. Final radiographs were taken and submitted for radiologist review. The patient was then awakened and taken to recovery room in stable condition. All final needle and sponge counts were correct. TRANSINT:[id number] Voice Confirmation ID: [id number] DOCUMENT ID: [id number] OPERATIVE REPORT [id number] COLLEEN HAN MD, YOVANI EMERSON at 0916 CC: [id number] DICTATION DATE: 03/13/19 1117 SURVEY CHIEF: 03/13/19 1209 DIS IN 03/09/19 [place] [id number] [place] [id number]
== END 2019-03-09 11:41 | disposition home or self-care (01) | DRG 904 ==
LOC: D.ER 21:13 → D.MS 21:56 → OBSVTIME 21:56 → D.MS 21:56
PROVIDERS: Internal Medicine Nephrology; Orthopaedic Surgery; ADMIT Orthopaedic Surgery; ATTEND Orthopaedic Surgery
PROC: 0QSH04Z Reposition Left Tibia with Internal Fixation Device, Open Approach (ICD-10-PCS; principal; 2019-03-03)
PROC: 0KNT0ZZ Release Left Lower Leg Muscle, Open Approach (ICD-10-PCS; 2019-03-03)
PROC: 0KNT0ZZ Release Left Lower Leg Muscle, Open Approach (ICD-10-PCS; 2019-03-03)
PROC: 0KNT0ZZ Release Left Lower Leg Muscle, Open Approach (ICD-10-PCS; 2019-03-03)
PROC: 0KNT0ZZ Release Left Lower Leg Muscle, Open Approach (ICD-10-PCS; 2019-03-03)
PROC: 0KDT0ZZ Extraction of Left Lower Leg Muscle, Open Approach (ICD-10-PCS; 2019-03-07)
PROC: 0HRLXJZ Replacement of Left Lower Leg Skin with Synthetic Substitute, External Approach (ICD-10-PCS; 2019-03-07 07:30)
DX: T79.A22A Traumatic compartment syndrome of left lower extremity, initial encounter (principal); S82.102A Unspecified fracture of upper end of left tibia, initial encounter for closed fracture; V29.88XA Motorcycle rider (driver) (passenger) injured in other specified transport accidents, initial encounter; S40.812A Abrasion of left upper arm, initial encounter; S40.811A Abrasion of right upper arm, initial encounter

== ENCOUNTER 2019-04-15 09:00 | Day surgery (SDC) | payer OTHER ==
[~2019-04-15] VITALS: Ht 180.3 cm; Wt 83.9 kg
[~2019-04-15 09:00] MED LIST changes: +ELIQUIS2.5 MG PO; +HYDROCODON-ACE1 EA10 PO
[2019-04-15] MEDS ORDERED: HYDROCODON-ACE1 EA10 PO ×2 (10:15→13:32)
[2019-04-15 10:19] VITALS: BP 107/78; Ht 180.3 cm; Wt 83.9 kg
--- NOTE | 2019-04-29 08:52 | OP ---
PATIENT NAME: COLLEEN HAN MEDICAL RECORD: [id number] :[birth year] LOCATION:[facility] ADMISSION DATE: SURGEON: YOVANI WILSON MD DATE OF OPERATION: 04/15/2019 PREOPERATIVE DIAGNOSIS: Painful hardware of the patient's right ankle. POSTOPERATIVE DIAGNOSIS: Painful hardware of the patient's right ankle. PROCEDURE: Removal of triple fusion nail of the right lower extremity. SURGEON: Yovani Wilson MD ANESTHESIA: Peña Escobar. INTRAOPERATIVE COMPLICATIONS: None. SUMMARY OF PATHOLOGIC FINDINGS: The nail was well fixed. A triple fusion was well healed; however, the patient began to have severe symptoms of the screw heads as well as on the plantar aspect of his foot. After evaluation, decision was made to remove the nail that had already done essentially its job. OPERATIVE SUMMARY IN DETAIL: After obtaining the appropriate preoperative orthopedic surgery consent as well as anesthetic consultation, evaluation and clearance, the patient was brought to the operating room and placed on the operating table in supine position. After general laryngeal mask airway was administered, tourniquet was placed on the proximal aspect of the right lower extremity. Right lower extremity was prepped and draped in routine sterile fashion. The leg was elevated and exsanguinated. Tourniquet was inflated to 350 mmHg. Under fluoroscopic guidance, the proximal most of the triple fusion screws were removed with some degree of trepidation; however, they were removed. This was then followed by the 2 screws at the distal aspect of the nail again under fluoroscopic evaluation guidance. Lastly, a small incision was made over the plantar aspect of the foot with a calcaneal screw being removed. Substantial amount of bone was required to be removed to gain access to the nail. The nail did have a cap. The cap was removed again with some degree of trepidation. Having completed this, backslap universal nail extraction set was utilized to grasp the distal aspect of the nail. The nail was then removed quite simply. After substantial irrigation, all wounds were closed in usual fashion. Final radiographs were taken and submitted for radiologist review. Sterile dressings were applied. The patient was awakened and taken to recovery room in stable condition. All final needle and sponge counts were correct. TRANSINT:[id number] Voice Confirmation ID: [id number] DOCUMENT ID: [id number] YOVANI WILSON MD at 0852 CC: [id number] DICTATION DATE: 04/25/19 1150 PENSION ADVISER: 04/25/19 1305 [facility] 04/15/19 [facility] [address] [facility] [place] [address]
== END 2019-04-15 15:11 | disposition home or self-care (01) ==
LOC: D.OPS 09:00 → D.PAN 12:00 → D.OPS 13:15 → D.PAN 14:45 → D.OPS 15:11
PROVIDERS: ATTEND Orthopaedic Surgery
DX: T84.84XA Pain due to internal orthopedic prosthetic devices, implants and grafts, initial encounter (principal); X58.XXXA Exposure to other specified factors, initial encounter